=== PATIENT | male | born 1945 | race Caucasian/White ===

== ENCOUNTER 2024-10-26 06:54 | Day surgery (SDC) | payer MEDICARE, BC, SELFPAY ==
[2024-10-26] VITALS (24 sets, daily range): BP systolic 71–143; BP diastolic 41–97; PULSE 38–90; RESP 12–24; TEMP 35.6–36.7; O2SAT 94–100; BMI 32.2
[2024-10-26] MEDS: LACTATED RINGERS 1000 ML 1,000 ML 100 ML IV (07:00)
[2024-10-26] MEDS: CELECOXIB 200 MG CAPSULE PO ×2 (07:15→22:15)
[2024-10-26] MEDS: ACETAMINOPHEN 500 MG TABLET 1000 MG PO ×3 (07:15→19:40)
[2024-10-26] MEDS: OXYCODONE (CR) 10 MG TAB.ER.12H PO (07:15)
[2024-10-26] MEDS: SODIUM CHLORIDE 0.9 % (FLUSH) 10 ML SYRINGE IVF (07:39)
[2024-10-26] MEDS: MIDAZOLAM HCL 1 MG/ML inj IVP (08:40)
--- NOTE | 2024-10-26 08:50 | W.PM.NB ---
Nerve Block Nerve Block Time Seen by Provider: 08:45 Date Seen: 10/26/24 Type of block requested by surgeon for post-operative analgesia: geniculars Side: left Time out performed: Yes Verification of patient name: Yes Verification of date of : Yes Site marking: site marked Name of person performing procedure: Wu Continuous monitoring Was continuous monitoring of O2 sat, B/P, athletic monitor, recorded every 15 minutes?: Yes Procedure Checklist: sterile prep, needles and gloves Ultrasound guided. Images saved: Yes Medications given in 5ml increments after negative aspiration: Marcaine %: 0.25 mL: 9 Needle gauge: 25 Patient tolerated procedure well: Yes Block Charges Block Charge (with Pro Fee): Genicular Nerve Block
--- NOTE | 2024-10-26 08:51 | P.ANES_ITS ---
Anesthesia Charges Start Date/Time Anesthesia Start Date: 10/26/24 Anesthesia Start Time: 09:14 Stop Date/Time Anesthesia Stop Date: 10/26/24 Anesthesia Stop Time: 11:43 Summary Extremes of Age - Over 70 or under 1: MDA Coding CPT Codes CPT Codes: ANESTH KNEE ARTHROPLASTY - 42243 ([id number]) P2 - PATIENT W/MILD SYST DISEASE, QK - DAIRY MANUFACTURING TECHNOLOGIST 2-4 CNCRNT ANES PROC, QX - SILK FOLDER SVC W/ MD MED DIRECTION Additional Codes: Summary - Extremes of Age - Over 70 or under 1: MDA ([id number])
--- NOTE | 2024-10-26 08:51 | W.PM.NB ---
Nerve Block Nerve Block Time Seen by Provider: 08:45 Date Seen: 10/26/24 Type of block requested by surgeon for post-operative analgesia: adductor canal Side: left Time out performed: Yes Verification of patient name: Yes Verification of date of : Yes Site marking: site marked Name of person performing procedure: Wu Continuous monitoring Was continuous monitoring of O2 sat, B/P, nutrition services associate, recorded every 15 minutes?: Yes Procedure Checklist: sterile prep, needles and gloves Ultrasound guided. Images saved: Yes Medications given in 5ml increments after negative aspiration: Marcaine %: 0.25 mL: 15 Needle gauge: 20 Precedex (mcg): 25 Patient tolerated procedure well: Yes Block Charges Block Charge (with Pro Fee): Femoral Nerve Use of Ultrasound Machine for Block: Yes- US Guidance/pain block
--- NOTE | 2024-10-26 08:51 | W.ANESCHARGE ---
Anesthesia Charges Start Date/Time Anesthesia Start Date: 10/26/24 Anesthesia Start Time: 09:14 Stop Date/Time Anesthesia Stop Date: 10/26/24 Anesthesia Stop Time: 11:43 Summary Extremes of Age - Over 70 or under 1: MDA Coding CPT Codes CPT Codes: ANESTH KNEE ARTHROPLASTY - 06048 ([id number]) P2 - PATIENT W/MILD SYST DISEASE, QK - HYDROELECTRIC PLANT MECHANICAL ENGINEER 2-4 CNCRNT ANES PROC, QX - LADLE PATCHER SVC W/ MD MED DIRECTION Additional Codes: Summary - Extremes of Age - Over 70 or under 1: MDA ([id number])
--- NOTE | 2024-10-26 08:59 | SUR.PREOP ---
TIME?OUT:?3240 PT/concepcion goff RN/melissa stafford MDA?VERIFICATION?OF?SURGICAL?SITE,?PROCEDURE,?AND?CONSENT OBTAINED?PRIOR?TO?INVASIVE?PROCEDURE.
[2024-10-26] MEDS: TRANEXAMIC ACID 100 MG/ML INJ 1000 MG IV (09:29)
--- NOTE | 2024-10-26 10:48 | CRLHL7_ITS ---
For Patients: As a result of the Cures Act, medical imaging exams and procedure reports are released immediately into your electronic medical record. You may view this report before your referring provider. If you have questions, please contact your health care provider. INDICATION: Postoperative total knee arthroplasty TECHNIQUE: Knee radiograph 2 views left COMPARISON: 08/23/2024 FINDINGS: Bone: No acute fractures or aggressive bone lesions are identified. Joint: The patient is status post a total knee arthroplasty with patellar resurfacing. No significant knee effusion is seen. Soft tissue: Anterior subcutaneous gas and joint gas are present from recent surgery. No radiopaque foreign bodies are seen. IMPRESSION: There is an unremarkable postoperative appearance of the knee arthroplasty. Dictated by: Imtiaz Tilley MD @ 10/30/2024 07:17:43 (Electronically Signed)
--- NOTE | 2024-10-26 10:51 | PM.ORPRC ---
Procedure Note Date of procedure: 10/26/24 Procedure: PREOPERATIVE DIAGNOSIS: Left knee osteoarthritis POSTOPERATIVE DIAGNOSIS: Left knee osteoarthritis NAME OF OPERATION: Left total knee arthroplasty SURGEON: Yair Gabriel MD INSTRUCTOR FLYING: Eli Gooden PA-C ANESTHESIA: Spinal ESTIMATED BLOOD LOSS: 0 mL COMPLICATIONS: None SPECIMENS: None DRAINS: None PREOPERATIVE ANTIBIOTICS: Ancef 2g IMPLANTS: 1. J&J Attune #6 posterior stabilized femur 2. # 7 fixed-bearing tibia 3. #6 posterior stabilized, 10 mm fixed-bearing polyethylene 4. 41 patella INDICATIONS: The patient is a 79-year-old with a longstanding history of severe, unrelenting left knee pain secondary to end-stage (grade IV) left knee osteoarthritis. Despite appropriate nonoperative management, including activity modification, anti-inflammatories, uqtp-[id number] pain medication, bracing, physical therapy, and injections they continue to have pain and disability. Operative intervention was offered. The risks, benefits and expected outcomes were discussed in detail. These included but were not limited to: Infection, bleeding, injury to blood vessel or nerve, venous thromboembolism. All questions were answered to their satisfaction. Use of an child development assistant was necessary throughout the case for patient positioning and safety, soft tissue retraction, and closure. PROCEDURE: Spinal anesthesia was administered. The patient was placed supine on the operating table. The child development assistant made sure the patient was positioned appropriately. The lower extremity was prepped and draped in the usual sterile fashion. The limb was exsanguinated with the Rivera bandage. The pneumatic tourniquet was inflated to 225mmHg. A standard anterior incision was made with the knee in flexion. Subcutaneous dissection was sharply taken through fascial layer #1. Full-thickness medial and lateral flaps were elevated. The child development assistant retracted the soft tissues and protected them throughout the case. A standard subvastus approach was made. The patella was subluxed. The infrapatellar fat pad was debrided. The menisci and cruciate ligaments were sharply d?brided. Marginal osteophytes were d?brided with the rongeur. The drill was used to penetrate the femoral canal. The intramedullary femoral guide was placed for a 5-degree valgus cut, removing 10 mm off the distal femur. The saw was used to make the cut. Whitesides line and the trans epicondylar axis were marked. The femoral sizing guide was pinned onto the distal femur. Three degrees of external rotation nicely parallels the transepicondylar axis. Pins were placed for posterior referencing. The four-in-one cutting guide was pinned onto the distal femur. The anterior, posterior, and chamfer cuts were made. The child development assistant protected the collateral ligaments. The box cutting guide was pinned. The box cuts were made. The boxed trial was placed and was an excellent fit. Drill holes for the lugs were made. Attention was then turned to the proximal tibia. The extramedullary tibial guide was placed for a neutral varus/valgus cut with 3 degrees of posterior slope, removing 2 mm based off the medial tibial surface. The child development assistant protected the collateral ligaments and the neurovascular bundle. The saw was used to make the cut. Trial components were placed. The knee was nicely balanced in both flexion and extension. The trial components were removed. The tray was placed in appropriate rotation, parallel to our tibial cutting pins. It was pinned by the child development assistant and the drill and the punch were used. The tray was removed. The punch was used again. We placed a bone plug in the femoral canal. Attention was then turned to the patella. [place] patellar thickness was 25 mm. The lobster claw resection guide was used with the 9.5 mm lady. The saw was used to make the cut. Drill holes were made by the child development assistant. The trial was placed and was an excellent fit. Cancellous surfaces were irrigated with pulse lavage and thoroughly dried by the child development assistant. We cemented the tibial component, then the femoral component. We impacted the 10 mm polyethylene onto the tibial tray. The knee was brought into full extension. We then cemented the patellar component. Excessive cement was removed. The cement was allowed to harden. The knee was taken through a range of motion and was found to be nicely balanced in both flexion and extension. The patella tracks centrally. The child development assistant did a three minute dilute Betadine solution soak. The child development assistant irrigated the wound with 3 liters of normal saline via pulse lavage. The child development assistant reapproximated the extensor mechanism with #1 Vicryl in an interrupted [id number]-[id number] fashion. The child development assistant then ran the extensor mechanism with a #1 PDO Stratafix. The child development assistant closed the subcutaneous tissues with a 3-0 Stratafix and the skin with a running 3-0 Stratafix in a subcuticular fashion. Glue was used to seal the skin. The child development assistant placed a dry dressing. Sponge and needle counts were correct x2. The patient tolerated the procedure well. There were no apparent complications. They were carefully transferred to the hospital bed and taken to the postanesthesia care unit in satisfactory condition. PLAN: The patient will be mobilized with physical therapy. Aspirin will be used for DVT prophylaxis. They will be discharged to home once medically appropriate.
--- NOTE | 2024-10-26 11:45 | P.ANES_ITS ---
Anesthesia Charges Start Date/Time Anesthesia Start Date: 10/26/24 Anesthesia Start Time: 09:14 Stop Date/Time Anesthesia Stop Date: 10/26/24 Anesthesia Stop Time: 11:43 Summary Extremes of Age - Over 70 or under 1: SPRING REPAIRER HELPER HAND Coding CPT Codes CPT Codes: ANESTH KNEE ARTHROPLASTY - 50041 ([id number]) P2 - PATIENT W/MILD SYST DISEASE, QK - HEAD CHEF 2-4 CNCRNT ANES PROC, QX - SPRING REPAIRER HELPER HAND SVC W/ MD MED DIRECTION Additional Codes: Summary - Extremes of Age - Over 70 or under 1: SPRING REPAIRER HELPER HAND ([id number])
--- NOTE | 2024-10-26 11:45 | W.ANESCHARGE ---
Anesthesia Charges Start Date/Time Anesthesia Start Date: 10/26/24 Anesthesia Start Time: 09:14 Stop Date/Time Anesthesia Stop Date: 10/26/24 Anesthesia Stop Time: 11:43 Summary Extremes of Age - Over 70 or under 1: ASSOCIATE MERCHANT Coding CPT Codes CPT Codes: ANESTH KNEE ARTHROPLASTY - 91384 ([id number]) P2 - PATIENT W/MILD SYST DISEASE, QK - REGULATORY SPECIALIST 2-4 CNCRNT ANES PROC, QX - ASSOCIATE MERCHANT SVC W/ MD MED DIRECTION Additional Codes: Summary - Extremes of Age - Over 70 or under 1: ASSOCIATE MERCHANT ([id number])
--- NOTE | 2024-10-26 12:19 | SUR.PHASEI ---
patient met discharge criteria per anesthesia
[2024-10-26] MEDS: LACTATED RINGERS 1000 ML 1,000 ML 75 ML IV (13:35)
[2024-10-26] MEDS: ONDANSETRON 2 MG/ML inj 4 MG IVP (14:01)
--- NOTE | 2024-10-26 15:13 | PC.NURSE ---
End of shift Note (260)? ? Patient has been very pleasant and cooperative throughout this shift. He was admitted for recovery after a LTKA. Surgical dressing is intact and dry. Patient states he ?tolerates a 2-pain level very well?. He has been educated in pain management and medications. Lung sounds are clear bilaterally. Son Ravin will be his ride home at discharge. Patient has been bradycardic since arrival (HR 50-54 bpm). Diet has been advanced to full diet.?
[2024-10-26] MEDS: CEFAZOLIN 2 GM in 0.9 % SODIUM CHLORIDE Mini-bag 100 ML IVPB (15:59)
--- NOTE | 2024-10-26 17:04 | PM.IMCN1 ---
Date of Consult Patient: Wei Patient Consult date: 10/26/24 Requesting Physician: Orthopedics Primary Care Provider: Rolando Santos MD Consult Narrative Reason for consult: Postoperative care of obstructive sleep apnea Narrative: Christ Stoner is a 79 year old man undergoes elective left total knee arthroplasty with Dr. Gabriel, orthopedic surgeon, [facility], [place], [place], on 10/26/2024 under spinal anesthesia. No apparent complications of the orthopedic surgery or the spinal anesthesia. Estimated blood loss is 0 mL. Pain adequately managed postoperatively when I see the patient. Review of Systems Status of ROS: Reports: 6 or more systems reviewed and unremarkable except as noted in History and below [facility] Medical History (Updated 10/26/24 @ 17:11 by Giovany Nichole MD) Neuropathy ?G62.9 - Polyneuropathy, unspecified (ICD-10) Erectile dysfunction ?N52.9 - Male erectile dysfunction, unspecified (ICD-10) Right inguinal hernia ?K40.90 - Unilateral inguinal hernia, without obstruction or gangrene, not specified as recurrent (ICD-10) Closed fracture of multiple ribs of right side ?S22.41XA - Multiple fractures of ribs, right side, initial encounter for closed fracture (ICD-10) Adenomatous colon polyp ?D12.6 - Benign neoplasm of colon, unspecified (ICD-10) Sensorineural hearing loss, bilateral ?H90.3 - Sensorineural hearing loss, bilateral (ICD-10) Impaired fasting glucose ?R73.01 - Impaired fasting glucose (ICD-10) Obesity, unspecified ?E66.9 - Obesity, unspecified (ICD-10) Hyperlipidemia ?E78.5 - Hyperlipidemia, unspecified (ICD-10) Prediabetes ?R73.03 - Prediabetes (ICD-10) Arthritis ?M19.90 - Unspecified osteoarthritis, unspecified site (ICD-10) Sleep apnea ?G47.30 - Sleep apnea, unspecified (ICD-10) Surgical History History of phacoemulsification of cataract of right eye with intraocular lens implantation (11/11/16) ?Z98.41 - Cataract extraction status, right eye (ICD-10) ?Z96.1 - Presence of intraocular lens (ICD-10) History of YAG laser capsulotomy of lens of right eye (07/30/21) ?Z98.41 - Cataract extraction status, right eye (ICD-10) History of hand surgery (02/15/08) ?Z98.890 - Other specified postprocedural states (ICD-10) History of vasectomy ?Z98.52 - Vasectomy status (ICD-10) H/O hemorrhoidectomy ?Z98.890 - Other specified postprocedural states (ICD-10) 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Medication ?Instructions ?Recorded ?Confirmed ?Type aspirin 81 mg chewable tablet 81 mg PO BID for DVT prophylaxis 10/26/24 Rx (Aspirin Childrens) 30 days #60 tabs oxycodone 5 mg tablet 2.5 - 5 mg (0.5 - 1 x 5 mg) PO 10/26/24 Rx Q4-6H PRN Pain #20 tabs sennosides 8.6 mg tablet (Senna 17.2 mg (2 x 8.6 mg) PO BID PRN 10/26/24 Rx Lax) constipation #100 tabs Home Medication Comments: CPAP 15 cm of water full mask when sleeping Allergies Allergy/AdvReac Type Severity Reaction Status Date / Time No Known Allergies Allergy Unknown Verified 10/26/24 07:30 Exam Narrative: Exam Narrative: Examined patient in his hospital room postoperatively. Vision and hearing are adequate. Awake, alert, oriented x4. Friendly, articulate, cooperative. Midline nasal septum. Moist buccal mucosa. Dentition in good repair. Neck is supple. Midline trachea. No head neck lymphadenopathy. Lungs are clear to auscultation without wheezing, rhonchi, rales. Chest wall excursions are full. No CVA tenderness. Heart tones with regular rhythm, bradycardia, normal S1-S2. Soft systolic murmur. No gallop or rub. Abdomen with active bowel sounds, soft, nontender. Already moves all 4 extremities. Const: Vital Signs, click to edit/add: Vital Signs - 24 hr 10/26/24 07:31 10/26/24 08:35 10/26/24 08:40 Temperature 97.8 F Pulse Rate 47 L 44 L 38 L Pulse Rate [Pulse Oximeter] Respiratory Rate 16 16 16 Blood Pressure 143/57 H 143/66 H 138/59 L Blood Pressure [Le ft Arm] Pulse Oximetry 98 98 100 Oxygen Delivery Me thod Room Air Nasal Cannula Nasal Cannula Oxygen Flow Rate 5 5 10/26/24 08:45 10/26/24 11:38 10/26/24 11:45 Temperature 97.5 F L 97.5 F L Pulse Rate 42 L 56 L 61 Pulse Rate [Pulse Oximeter] Respiratory Rate 16 15 24 Blood Pressure 131/68 125/58 L 99/41 L Blood Pressure [Le ft Arm] Pulse Oximetry 100 98 98 Oxygen Delivery Me thod Nasal Cannula Room Air Room Air Oxygen Flow Rate 5 10/26/24 11:50 10/26/24 11:55 10/26/24 12:00 Temperature 97.5 F L 97.5 F L 97.5 F L Pulse Rate 56 L 51 L 54 L Pulse Rate [Pulse Oximeter] Respiratory Rate 13 16 19 Blood Pressure 102/49 L 123/49 L 71/50 L Blood Pressure [Le ft Arm] Pulse Oximetry 98 100 99 Oxygen Delivery Me thod Room Air Room Air Room Air Oxygen Flow Rate 10/26/24 12:05 10/26/24 12:11 10/26/24 12:15 Temperature 97 F L 96.5 F L Pulse Rate 50 L Pulse Rate [Pulse Oximeter] 50 L 54 L Respiratory Rate 12 16 16 Blood Pressure 105/57 L Blood Pressure [Le ft Arm] 116/69 114/49 L Pulse Oximetry 99 99 100 Oxygen Delivery Me thod Room Air Room Air Room Air Oxygen Flow Rate 10/26/24 12:30 10/26/24 12:45 10/26/24 13:00 Temperature 96.1 F L 96.2 F L Pulse Rate Pulse Rate [Pulse Oximeter] 54 L 54 L 54 L Respiratory Rate 18 16 18 Blood Pressure Blood Pressure [Le ft Arm] 112/59 L 128/62 125/72 Pulse Oximetry 100 100 96 Oxygen Delivery Me thod Room Air Room Air Room Air Oxygen Flow Rate 10/26/24 13:30 10/26/24 14:00 10/26/24 14:00 Temperature 96.2 F L 96.2 F L 96.2 F L Pulse Rate 52 L 55 L Pulse Rate [Pulse Oximeter] 55 L Respiratory Rate 16 16 16 Blood Pressure 129/68 126/77 Blood Pressure [Le ft Arm] 126/77 Pulse Oximetry 100 100 100 Oxygen Delivery Me thod Room Air Room Air Room Air Oxygen Flow Rate 10/26/24 15:00 10/26/24 15:00 10/26/24 15:00 Temperature 96.5 F L 96.5 F L Pulse Rate 69 Pulse Rate [Pulse Oximeter] 69 Respiratory Rate 16 16 16 Blood Pressure 127/82 Blood Pressure [Le ft Arm] 127/82 Pulse Oximetry 100 100 100 Oxygen Delivery Me thod Room Air Room Air Room Air Oxygen Flow Rate 10/26/24 16:00 Temperature Pulse Rate Pulse Rate [Pulse Oximeter] 75 Respiratory Rate Blood Pressure Blood Pressure [Le ft Arm] 138/97 H Pulse Oximetry Oxygen Delivery Me thod Oxygen Flow Rate Assessment and Plan Assessment and plan (1) Osteoarthritis of left knee: Problem comment: Severe - [id number] Status: Acute (2) Status post left knee replacement: Status: Acute (3) Sleep apnea: Problem comment: - CPAP use when sleeping with setting of 15 cm of water, full mask Status: Acute Plan 1. Reviewed impression, plans, recommendations with patient and 2. Continue with supportive efforts including use of CPAP when sleeping 3. Hospitalist will be available to support patient needs while orthopedic surgery has patient in hospital postoperatively 4. Answered patient's and 's questions to their satisfaction 5. They are agreeable with above stated plans and recommendations Total Time Spent Total Time Spent: 50 minutes
--- NOTE | 2024-10-26 18:38 | PC.NURSE ---
End of Shift ([id number]): Patient pleasant and cooperative, A&O. VSS, afebrile. SpO2 maintained above 90% on RA. Dressing to left knee C/D/I. Reports pain on his left knee this shift, managed with PRN medication, see MAR. Tolerating regular diet. Denies nausea this shift. 1A with walker and gait belt. ?
[2024-10-26] MEDS: ASPIRIN 81 MG TABLET EC PO (22:15)
[2024-10-27] MEDS: CEFAZOLIN 2 GM in 0.9 % SODIUM CHLORIDE Mini-bag 100 ML IVPB
[2024-10-27 02:00] VITALS: BP 139/74; PULSE 74; RESP 16; TEMP 36.6; O2SAT 94
[2024-10-27] MEDS: ACETAMINOPHEN 500 MG TABLET 1000 MG PO ×2 (02:26→10:39)
[2024-10-27 07:00] VITALS: BP 141/76; PULSE 67; RESP 20; TEMP 37.1; O2SAT 100
--- NOTE | 2024-10-27 07:44 | PM.ORPN ---
Subjective Subjective Time Seen by Provider: 07:44 Date Seen: 10/27/24 Principal diagnosis: Status post left knee replacement Interval history: Khang is comfortable this morning. He will be discharging today with his son Ortho Exam Narrative Exam Narrative: Alert and oriented x3. Patient is in no acute distress. Converses without labored breathing. Hearing is grossly intact. Ambulates with a walker. Examination of the left knee shows the dressing is intact. Mild hematoma anterior knee. Bilateral calves are soft and nontender. CMS is intact left lower extremity. He is able to straight leg raise. Minimal edema about the knee. Pretibial edema. No ecchymosis. No sign of infection. No erythema or warmth. Const Vital Signs, click to edit/add: Vital Signs - 24 hr 10/26/24 08:35 10/26/24 08:40 10/26/24 08:45 Temperature Pulse Rate 44 L 38 L 42 L Pulse Rate [Pulse Oximeter] Respiratory Rate 16 16 16 Blood Pressure 143/66 H 138/59 L 131/68 Blood Pressure [Left Arm] Pulse Oximetry 98 100 100 Oxygen Delivery Method Nasal Cannula Nasal Cannula Nasal Cannula Oxygen Flow Rate 5 5 5 10/26/24 11:38 10/26/24 11:45 10/26/24 11:50 Temperature 97.5 F L 97.5 F L 97.5 F L Pulse Rate 56 L 61 56 L Pulse Rate [Pulse Oximeter] Respiratory Rate 15 24 13 Blood Pressure 125/58 L 99/41 L 102/49 L Blood Pressure [Left Arm] Pulse Oximetry 98 98 98 Oxygen Delivery Method Room Air Room Air Room Air Oxygen Flow Rate 10/26/24 11:55 10/26/24 12:00 10/26/24 12:05 Temperature 97.5 F L 97.5 F L 97 F L Pulse Rate 51 L 54 L 50 L Pulse Rate [Pulse Oximeter] Respiratory Rate 16 19 12 Blood Pressure 123/49 L 71/50 L 105/57 L Blood Pressure [Left Arm] Pulse Oximetry 100 99 99 Oxygen Delivery Method Room Air Room Air Room Air Oxygen Flow Rate 10/26/24 12:11 10/26/24 12:15 10/26/24 12:30 Temperature 96.5 F L 96.1 F L Pulse Rate Pulse Rate [Pulse Oximeter] 50 L 54 L 54 L Respiratory Rate 16 16 18 Blood Pressure Blood Pressure [Left Arm] 116/69 114/49 L 112/59 L Pulse Oximetry 99 100 100 Oxygen Delivery Method Room Air Room Air Room Air Oxygen Flow Rate 10/26/24 12:45 10/26/24 13:00 10/26/24 13:30 Temperature 96.2 F L 96.2 F L Pulse Rate 52 L Pulse Rate [Pulse Oximeter] 54 L 54 L Respiratory Rate 16 18 16 Blood Pressure 129/68 Blood Pressure [Left Arm] 128/62 125/72 Pulse Oximetry 100 96 100 Oxygen Delivery Method Room Air Room Air Room Air Oxygen Flow Rate 10/26/24 14:00 10/26/24 14:00 10/26/24 15:00 Temperature 96.2 F L 96.2 F L 96.5 F L Pulse Rate 55 L 69 Pulse Rate [Pulse Oximeter] 55 L Respiratory Rate 16 16 16 Blood Pressure 126/77 127/82 Blood Pressure [Left Arm] 126/77 Pulse Oximetry 100 100 100 Oxygen Delivery Method Room Air Room Air Room Air Oxygen Flow Rate 10/26/24 15:00 10/26/24 15:00 10/26/24 16:00 Temperature 96.5 F L Pulse Rate Pulse Rate [Pulse Oximeter] 69 75 Respiratory Rate 16 16 Blood Pressure Blood Pressure [Left Arm] 127/82 138/97 H Pulse Oximetry 100 100 Oxygen Delivery Method Room Air Room Air Oxygen Flow Rate 10/26/24 16:00 10/26/24 17:00 10/26/24 17:00 Temperature 97.3 F L 97.3 F L Pulse Rate 75 64 Pulse Rate [Pulse Oximeter] 64 Respiratory Rate 16 16 Blood Pressure 138/97 H 137/79 Blood Pressure [Left Arm] 137/79 Pulse Oximetry 99 99 Oxygen Delivery Method Room Air Room Air Oxygen Flow Rate 10/26/24 18:00 10/26/24 18:00 10/26/24 19:34 Temperature 98.1 F Pulse Rate 84 74 Pulse Rate [Pulse Oximeter] 84 Respiratory Rate 16 Blood Pressure 137/78 140/75 H Blood Pressure [Left Arm] 137/78 Pulse Oximetry 94 Oxygen Delivery Method Oxygen Flow Rate 10/26/24 22:14 10/26/24 23:00 10/26/24 23:00 Temperature 98 F Pulse Rate Pulse Rate [Pulse Oximeter] 90 90 Respiratory Rate 18 18 18 Blood Pressure Blood Pressure [Left Arm] 128/80 Pulse Oximetry 97 97 Oxygen Delivery Method Room Air Room Air Oxygen Flow Rate 10/27/24 02:00 Temperature 98 F Pulse Rate Pulse Rate [Pulse Oximeter] 74 Respiratory Rate 16 Blood Pressure Blood Pressure [Left Arm] 139/74 Pulse Oximetry 94 Oxygen Delivery Method Room Air Oxygen Flow Rate Assessment and Plan Assessment and plan (1) Status post left knee replacement: Problem details: 10/26/2024 Status: Acute Assessment and Plan: Plan for discharge is today to home if they meet discharge criteria. DVT prophylaxis includes aspirin 81 mg twice daily x1 month, Compression stockings as needed for swelling. Frequent ambulation, every hour throughout the day. Remove dressing in 2 weeks. Observe wound and phone Orthopedics with any questions or concerns Return to clinic in 1 week for a wound check Return to clinic in 6 weeks with surgeon Minimize narcotic use. Wean off and discontinue soon as possible. Activities as tolerated. No strenuous activity. Outpatient physical therapy as scheduled. Ice and elevate the operative extremity. No restriction on ice. Khang does not plan on taking any oxycodone. He uses black licorice for constipation. He has a bottle of Tylenol at home. We discussed that the only medication that he must take for 30 days is aspirin 81 mg twice daily. He states he has a bottle that at home as well. Oxycodone quantity 20 is at his pharmacy in the event he has pain over the weekend. He is in agreement the above. All questions were answered. Note, dictation performed with voice recognition, and as a result, wrong word or sound like substitutions may have occurred. There may be areas in the script that have gone undetected. Please consider this when interpreting information found in the chart.
[2024-10-27] MEDS: ASPIRIN 81 MG TABLET EC PO (09:11)
[2024-10-27] MEDS: CELECOXIB 200 MG CAPSULE PO (09:11)
--- NOTE | 2024-10-27 11:21 | PC.NURSE ---
Discharge Note (260)? ? Patient was very pleasant and very cooperative throughout the shift. He was admitted after a LTKA (10/26). He states that he ?has no felt any pain, only slight discomfort, but it is bearable?. Lung sounds are clear bilaterally; surgical dressing is intact and dry. Patient moves well with SBA. Vitals are stable. Patient has good appetite and is eager to go home. Patient was discharged at ??11:14 am accompanied by his and son.?
== END 2024-10-27 11:14 | disposition home or self-care (01) ==
LOC: OR 06:57 → MEDSURG 06:58
PROVIDERS: PCP Family Medicine; Visit Provider Orthopaedic Surgery
PROC: (CPT 27447; principal; 2024-10-26 09:00)
DX: M17.12 Unilateral primary osteoarthritis, left knee (principal); G89.18 Other acute postprocedural pain; E66.9 Obesity, unspecified; E78.5 Hyperlipidemia, unspecified; R73.03 Prediabetes; G62.9 Polyneuropathy, unspecified; G47.30 Sleep apnea, unspecified; Z79.82 Long term (current) use of aspirin
CPT/HCPCS: 27447; 01402; 64447; 64454; 73560; 76942; 97110; 97116; 97161; 97165; 97530; 99100; A9270; C1776; J0665; J0690; J1100; J1171; J2250; J2405; J2704; J3010; J7120

== ENCOUNTER 2024-11-23 10:00 | Outpatient (RCR) | payer MEDICARE, BC, SELFPAY ==
--- NOTE | 2024-10-30 11:17 | PT.OPEX ---
PT [place] Outpatient Eval PT [facility] Outpatient Eval Start: 10/30/24 07:16 Freq: Status: Active Protocol: Document 10/30/24 10:00 EBONY (Rec: 10/30/24 11:14 EBONY [id number]) E-signed By Marc King PT Physical Therapy Outpatient Evaluation Insurance Information Insurance Name Medicare B,[employer] Medical Diagnosis Left knee TKA 10/27/24 Treating Diagnosis Impaired gait Decreased left knee ROM Left quad weakness Left LE swelling Referring MD Gabriel Subjective Preferred Name Khang Clay Pt. comes to therapy today following left knee TKA on due to end stage knee OA pain and disability. He reports things going pretty well at home thus far. He is staying on main floor of home that has accessible bedroom and bathroom. He has been using FWW at home. He has been able to control the post-op pain with Tylenol , ice and elevation. He has been doing his HEP 3 times a day which has gone well. He had his right knee replaced 8 years ago with excellent results. PMH includes; neuropathy, sleep apnea, and right TKA. His goal is to be able to walk and golf without difficulty again kay. Pain Comments mild today with Tylenol Date of Surgery (If 10/26/24 applicable) Current Work Status Retired Objective Other/Pertinent Gait: Mild limp with decreased knee extension at left Objective heel strike using FWW Posture: WNL Knee ROM: 0-3-110 left Strength: left quad 3+/5 Swelling: Moderate left LE with mild pitting edema Assessment Assessment/ 79 year old male who comes to therapy S/P left knee TKA Impression on 10/26/24. He spent one night in the hospital without complications with D/C to home on 10/27/24. He had is right TKA 8 years ago with excellent outcome and function. Objective findings include; ambulation with FWW with mild limp, decreased knee extension at heel strike, and shortened stride length; 0-3-110 degrees of left knee ROM; 3+/5 left quad strength with ability to perform indep. SLR with mild extension lag noted; moderate joint effusion/swelling of left knee; normal right knee ROM and strength, function bilateral hip ROM, and good core strength. He would benefit from skilled therapy working on progressive knee ROM, quad strength, balance and gait training. Primary Functional walking, squatting, golfing, steps Limitations Plan of Care Rehabilitation Excellent Potential Physical Therapy 1. Pt. will be indep. with HEP for self maintenance in Goals 8 weeks. 2. Pt. will be able to walk without assistive device without a limp in 8 weeks. 3. Pt. will demonstrate improved quad strength to 4+/5 to allow step ambulation without difficulty in 8 weeks. 4. Pt. will demonstrate functional knee AROM to allow regular ADL's in 8 weeks. Coordination/ Referral Source Communication With Treatment Plan/ Gait Training,Joint Mobilization,Manual Therapy,Self- Direct Interventions Care/Home Management,Therapeutic Exercises Frequency/Duration 1-2 times a week for 8 weeks. Patient Will Be Independent w/HEP,Independently Progressing Discharged From Therapy Evaluation Billing Complexity Low Certification Information Initial 10/30/24 Certification Date Ending Certification 01/28/25 Date Provider Signature Yes Required Provider Signature POC & Medical Necessity Shows Agreement With Physician NPI Number Write NPI# Here Physician Comment/ : Change Physician Signature Please Sign/Date Here & Date Requested
== END 2024-12-01 09:27 | disposition home or self-care (01) ==
PROVIDERS: PCP Family Medicine; Visit Provider Orthopaedic Surgery
DX: Z47.1 Aftercare following joint replacement surgery (principal); Z96.652 Presence of left artificial knee joint; Z51.89 Encounter for other specified aftercare
CPT/HCPCS: 97110; 97140; 97161